=== PATIENT | female | born 1995 | race African-American/Black ===

== ENCOUNTER 2016-07-21 23:49 | Emergency (ER) | payer OTHER ==
[~2016-07-21 23:49] MED LIST: NO MEDICATIONS; ZOFRAN ODT4 MG PO
[2016-07-22] LABS: URINE SOURCE CLEAN CATCH
[2016-07-22 00:08] LABS: URINE APPEARANCE CLOUDY; URINE BILIRUBIN NEG (NEG); URINE BLOOD NEG (NEG); URINE COLOR YELLOW; URINE GLUCOSE NEG (NEG); URINE KETONE TRACE (NEG); URINE LEUKOCYTE ESTERASE TRACE (NEG); URINE NITRATE NEG (NEG); URINE PH 7.5 (5-8); URINE PROTEIN NEG (NEG); URINE SPECIFIC GRAVITY 1.028 (1.003-1.035)
[2016-07-22 00:12] LABS: URBCS1 AUWI 0-2 /[HPF] (0-2); URINE BACTERIA AUWI NEG (NEGATIVE); URINE SQUAMOUS EPITHELIAL CELL OCC /[HPF]
[2016-07-22 00:17] LABS: CULTURE INDICATED? NO
== END 2016-07-22 01:16 | disposition other institution (70) ==
LOC: CED 23:49
DX: O99.89 Other specified diseases and conditions complicating pregnancy, childbirth and the puerperium (principal); R10.9 Unspecified abdominal pain; Z3A.21 21 weeks gestation of pregnancy; Z88.1 Allergy status to other antibiotic agents; Z91.040 Latex allergy status
CPT/HCPCS: 36415; 81003; 84703; 99284